=== PATIENT | female | born 1980 | race Caucasian/White ===

== ENCOUNTER 2017-10-10 19:23 | Emergency (ER) | payer OTHER ==
[2017-10-10 20:20] VITALS: BP 106/64; PULSE 80; TEMP 98.6; BMI 23.2
[2017-10-10] MEDS ORDERED: ACETAMINOPHEN 1000 MG/100 ML VIAL (NON FORMULARY) IVPB ONE (20:44)
[2017-10-10] MEDS ORDERED: METOCLOPRAMIDE HCL INJECTION 10 MG/2 ML VIAL IVPUSH ONE (20:44)
[2017-10-10] MEDS ORDERED: SODIUM CHLORIDE 0.9% 1000 ML INFUS.BAG IV ONE (20:44)
--- NOTE | 2017-10-10 20:46 | PDOC ---
History of Present Illness - General History Source: Patient Exam Limitations: No Limitations - History of Present Illness Initial Comments: 10/10/17 20:49 The patient is a 37 year old female, with no significant past medical history, who presents to the emergency department with a headache for the last 3 days. She reports that the headache was gradual onset and worsened throughout the day. She reports that her headache ranges from mild to moderate, without radiation. She notes that she has been taking Exedrin with 1-2 hours of relief before the pain returns. She reports that she has been experiencing blurry vision intermittently as well. Which she associates to the headache. The patient denies chest pain, shortness of breath and dizziness. Denies fever, chills, nausea, vomit, diarrhea and constipation. Denies dysuria, frequency, urgency and hematuria. LMP: 09/06/2017 Allergies: None Past surgical history: None reported Social history: Cigarette use (3 daily). No alcohol or drug use reported <David Townsend - Last Filed: 10/10/17 20:50> <Maya Pascual - Last Filed: 10/11/17 00:01> - General Chief Complaint: Headache Stated Complaint: HEADACHE Time Seen by Provider: 10/10/17 19:25 Past History <David Townsend - Last Filed: 10/10/17 20:50> - Past Medical History COPD: No Thyroid Disease: No - Immunization History Immunization Up to Date: Yes - Suicide/Smoking/Psychosocial Hx Smoking History: Current some day smoker Have you smoked in the past 12 months: No Number of Cigarettes Smoked Daily: 3 Information on smoking cessation initiated: No Hx Alcohol Use: No Drug/Substance Use Hx: No Substance Use Type: None <Maya Pascual - Last Filed: 10/11/17 00:01> - Past Medical History Allergies/Adverse Reactions: Allergies Allergy/AdvReac Type Severity Reaction Status Date / Time No Known Allergies Allergy Verified 10/10/17 20:21 Home Medications: Ambulatory Orders Acetaminophen [Tylenol] 650 mg PO QID PRN 10/10/17 Aspirin/Acetaminophen/Caffeine [Excedrin Migraine Caplet] 1 each PO ASDIR Ibuprofen [Motrin -] 600 mg PO TID PRN 10/10/17 Review of Systems - Review of Systems Able to Perform ROS?: Yes Comments:: 10/10/17 20:48 GENERAL/CONSTITUTIONAL: No fever or chills. No weakness. HEAD, EYES, EARS, NOSE AND THROAT: (+) Blurry vision. No ear pain or discharge. No sore throat.- CARDIOVASCULAR: No chest pain or shortness of breath RESPIRATORY: No cough, wheezing, or hemoptysis. GASTROINTESTINAL: No nausea, vomiting, diarrhea or constipation. GENITOURINARY: No dysuria, frequency, or change in urination. MUSCULOSKELETAL: No joint or muscle swelling or pain. No neck or back pain. SKIN: No rash NEUROLOGIC: (+) Headache. No vertigo, loss of consciousness, or change in strength/sensation. ENDOCRINE: No increased thirst. No abnormal weight change HEMATOLOGIC/LYMPHATIC: No anemia, easy bleeding, or history of blood clots. ALLERGIC/IMMUNOLOGIC: No hives or skin allergy. <David Townsend - Last Filed: 10/10/17 20:50> *Physical Exam - Vital Signs Last Vital Signs Temp Pulse Resp BP Pulse Ox 98.6 F 80 18 106/64 100 10/10/17 20:18 10/10/17 20:18 10/10/17 20:18 10/10/17 20:18 10/10/17 20:18 - Physical Exam Comments: 10/10/17 20:49 GENERAL: Awake, alert, and fully oriented, in no acute distress HEAD: No signs of trauma, normocephalic, atraumatic. No facial tenderness. EYES: PERRLA, EOMI, sclera anicteric, conjunctiva clear. Pupils round and reactive. ENT: Auricles normal inspection, hearing grossly normal, nares patent, oropharynx clear without exudates. Moist mucosa NECK: Normal ROM, supple, no lymphadenopathy, JVD, or masses. No meniginial signs. LUNGS: No distress, speaks full sentences, clear to auscultation bilaterally HEART: Regular rate and rhythm, normal S1 and S2, no murmurs, rubs or gallops, peripheral pulses normal and equal bilaterally. ABDOMEN: Soft, nontender, normoactive bowel sounds. No guarding, no rebound. No masses EXTREMITIES : Normal inspection, Normal range of motion, no edema. No clubbing or cyanosis. NEUROLOGICAL: Cranial nerves II through XII grossly intact. Normal speech, normal gait, no focal sensorimotor deficits SKIN: Warm, Dry, normal turgor, no rashes or lesions noted. <David Townsend - Last Filed: 10/10/17 20:50> - Vital Signs Last Vital Signs Temp Pulse Resp BP Pulse Ox 98.6 F 80 18 106/64 100 10/10/17 20:18 10/10/17 20:18 10/10/17 20:18 10/10/17 20:18 10/10/17 20:18 <Maya Pascual - Last Filed: 10/11/17 00:01> ED Treatment Course - LABORATORY CBC & Chemistry Diagram: 10/10/17 20:43 10/10/17 22:00 <Maya Pascual - Last Filed: 10/11/17 00:01> Medical Decision Making - Medical Decision Making 10/10/17 20:45 a/p: 37yo female with a gradual headache since sunday -mild relief with PO meds - ecedrin and tylenol but angulo returns -no meningeal signs -will check labs -hx of irregular menstrual cycles, late currently [facility] 09/06 -will check preg test -will monitor and reassess -iv reglan, benadryl, ivf hydration -suspect cephalgia and less likely SAH 10/10/17 22:50 pt states angulo improved, not gone will add toradol and decadron 10/11/17 00:00 headache resolved feeling better smiling requesting to go home stable for d/c to home discussed lab results <Maya Pascual - Last Filed: 10/11/17 00:01> *DC/Admit/Observation/Transfer - Attestations Scribe Attestion: 10/10/17 20:49 Documentation prepared by David Townsend, acting as paramedical aide for Maya Pascual DO <David Townsend - Last Filed: 10/10/17 20:50> - Discharge Dispostion Admit: No - Attestations Physician Attestion: 10/11/17 00:01 I, Dr. Maya Pascual DO, attest that this document has been prepared under my direction and personally reviewed by me in its entirety. I further attest, that it accurately reflects all work, treatment, procedures and medical decision -making performed by me. <Maya Pascual - Last Filed: 10/11/17 00:01> Diagnosis at time of Disposition: Cephalgia - Discharge Dispostion Disposition: HOME Condition at time of disposition: Stable - Referrals Referrals: Bradley Perea MD [Staff Physician] - - Patient Instructions Printed Discharge Instructions: DI for Headache Additional Instructions: Please make an appointment to see your PMD. Please return to the ED with any further complaints. Please take tylenol or motrin for the pain.
[2017-10-10] MEDS ORDERED: ACETAMINOPHEN INJECTION 100 ML IVPB ONE (20:49)
[2017-10-10] MEDS ORDERED: METOCLOPRAMIDE HCL INJECTION 10 MG/2 ML VIAL ONE (20:49)
[2017-10-10 21:11] LABS: URINE APPEARANCE SLCLOUDY; URINE BILIRUBIN NEGATIVE (NEGATIVE); URINE BLOOD NEGATIVE (NEGATIVE); URINE COLOR LTYELLOW; URINE GLUCOSE (UA) NEGATIVE (NEGATIVE); URINE KETONE NEGATIVE (NEGATIVE); URINE LEUK ESTERASE NEGATIVE (NEGATIVE); URINE NITRITE NEGATIVE (NEGATIVE); URINE PROTEIN NEGATIVE (NEGATIVE); URINE UROBILINOGEN NEGATIVE mg/dL (0.2-1.0)
[2017-10-10 21:12] LABS: HCG,QUALITATIVE URINE NEGATIVE
[2017-10-10 21:14] LABS: BASO % 0.7 % (0-2.0); EOS % 1.4 % (0-4.5); HEMATOCRIT 37.9 % (32.4-45.2); HEMOGLOBIN 12.6 GM/dL (10.7-15.3); MCH 29.5 pg (25.7-33.7); MCHC 33.3 g/dl (32.0-36.0); MEAN CELL VOLUME 88.7 fl (80-96); MONO % 10.2 % (3.8-10.2); NEUT % 43.7 % (42.8-82.8); PLATELET COUNT 295 K/MM3 (134-434); RBC 4.27 M/mm3 (3.60-5.2); RDW 13.4 % (11.6-15.6); WHITE BLOOD COUNT 7.5 K/mm3 (4.0-10.0)
[2017-10-10] MEDS ORDERED: KETOROLAC TROMETHAMINE 30 MG/1 ML VIAL IVPUSH ONE (22:45)
[2017-10-10] MEDS ORDERED: DEXAMETHASONE SOD PHOSPHATE 10 MG/1 ML VIAL IVPUSH ONE (22:45)
[2017-10-10 22:51] LABS: ANION GAP 8 (8-16); BLOOD UREA NITROGEN 9 mg/dL (7-18); CALCIUM 7.8 mg/dL (8.5-10.1); CHLORIDE 110 mmol/L (98-107); CO2 22 mmol/L (21-32); GLUCOSE,RANDOM 81 mg/dL (74-106); SODIUM 140 mmol/L (136-145)
[2017-10-10 22:54] LABS: ALK PHOS 68 U/L (45-117); BILIRUBIN,TOTAL 0.2 mg/dL (0.2-1.0); CREATININE 0.5 mg/dL (0.55-1.02); SGOT/AST 26 U/L (15-37); SGPT/ALT 33 U/L (12-78); TOT PROT 6.2 g/dl (6.4-8.2)
[2017-10-10] MEDS ORDERED: DEXAMETHASONE SOD PHOSPHATE 10 MG/1 ML VIAL ONE (23:10)
[2017-10-10] MEDS ORDERED: KETOROLAC TROMETHAMINE 30 MG/1 ML VIAL ONE (23:10)
== END 2017-10-11 00:10 | disposition home or self-care (01) ==
LOC: JER 19:23
PROC: 3E033GC Introduction of Other Therapeutic Substance into Peripheral Vein, Percutaneous Approach (ICD-10-PCS; principal; 2017-10-10)
PROC: 3E0337Z Introduction of Electrolytic and Water Balance Substance into Peripheral Vein, Percutaneous Approach (ICD-10-PCS; 2017-10-10)
PROC: 3E0333Z Introduction of Anti-inflammatory into Peripheral Vein, Percutaneous Approach (ICD-10-PCS; 2017-10-10)
PROC: 3E033NZ Introduction of Analgesics, Hypnotics, Sedatives into Peripheral Vein, Percutaneous Approach (ICD-10-PCS; 2017-10-10)
DX: R51 Headache (principal); F17.210 Nicotine dependence, cigarettes, uncomplicated
CPT/HCPCS: 36415; 80053; 81003; 84703; 85025; 99282-25; J1100